=== PATIENT | female | born 1965 | race African-American/Black ===

== ENCOUNTER 2017-04-06 21:28 | Emergency (ER) | payer OTHER, SELFPAY ==
[2017-04-06] MEDS ORDERED: Amoxicillin/Potassium Clav 875 MG TAB ONE (21:56)
== END 2017-04-06 22:00 | disposition home or self-care (01) ==
LOC: BURERS 21:28
DX: J01.90 Acute sinusitis, unspecified (principal); B96.89 Other specified bacterial agents as the cause of diseases classified elsewhere; I10 Essential (primary) hypertension; K58.9 Irritable bowel syndrome, unspecified; F32.9 Major depressive disorder, single episode, unspecified; Z79.891 Long term (current) use of opiate analgesic; Z79.899 Other long term (current) drug therapy
CPT/HCPCS: 99283

== ENCOUNTER 2018-07-23 16:17 | Outpatient (CLI) | payer OTHER ==
--- NOTE | 2018-07-23 16:40 | RAD ---
CHEST TWO VIEWS: 07/23/18 HISTORY: Cough for two weeks. COMPARISON: 08/19/11. Heart size is normal. The lungs are clear. No pneumonia, edema, or pleural effusion. IMPRESSION: No acute intrathoracic disease. No evidence for pneumonia. POS: [facility]
== END 2018-07-23 16:18 | disposition home or self-care (01) ==
LOC: BURRAD 16:17
PROVIDERS: ATTEND Internal Medicine
DX: R05 Cough (principal)
CPT/HCPCS: 71046

== ENCOUNTER 2018-08-11 12:08 | Outpatient (CLI) | payer OTHER ==
--- NOTE | 2018-08-13 07:48 | RAD ---
LUMBAR SPINE THREE VIEWS: 08/11/18 No fracture, disc space narrowing or vertebral anomaly was seen. All vertebrae appear normal for age. There was no excessive arthritic change. The SI joints appear normal. An electronic stimulator devic e is seen in the right lower quadrant and pelvic region. The stimulator generator is located posterio rly. IMPRESSION: No acute bony finding. POS: [facility]
== END 2018-08-11 12:09 | disposition home or self-care (01) ==
LOC: BURRAD 12:08
PROVIDERS: ATTEND Physician Assistant
DX: M54.5 Low back pain (principal)
CPT/HCPCS: 72100

== ENCOUNTER 2020-08-24 15:58 | Emergency (ER) | payer BC ==
[2020-08-24] MEDS ORDERED: Metoclopramide HCl 10 MG/2 ML VIAL ONE (17:54)
[2020-08-24] MEDS ORDERED: diphenhydrAMINE 50 MG/ML VIAL ONE (17:54)
[2020-08-24] MEDS ORDERED: Dexamethasone 10 MG/ML VIAL ONE (17:54)
[2020-08-24] MEDS ORDERED: Ketorolac Tromethamine 30 MG/ML VIAL ONE (17:54)
[2020-08-24 18:12] LABS: Hemoglobin 13.4 g/dL (12.0-16.0); Mean Corpuscular HGB CONC 32.1 g/dL (32.0-36.0); Mean Corpuscular Hemoglobin 29.4 pg (27.0-31.0); Mean Corpuscular Volume 91.6 fL (78.0-98.0); Mean Platelet Volume 7.3 fL (7.4-10.4); Platelet Count 304 thou/uL (130-400); RBC Distribution Width 12.7 % (11.5-14.5); Red Blood Cell (RBC) Count 4.57 mill/uL (4.20-5.40); White Blood Cell (WBC) Count 15.3 thou/uL (4.8-10.8)
[2020-08-24 18:14] LABS: Bilirubin Negative (Negative); Blood, Urine Negative (Negative); Clarity Clear (Clear); Glucose, Urine (Dipstick) Negative (Negative); Ketone, Urine Negative (Negative); Leukocyte Negative (Negative); Nitrite Negative (Negative); Protein, Urine (Dipstick) Negative (Neg-Trace); Specific Gravity, Urine 1.015 (1.005-1.030); Urobilinogen 0.2 mg/dL (Less than 2)
[2020-08-24 18:16] LABS: ALT (SGPT) 15 U/L (8-55); AST (SGOT) 18 U/L (5-34); Albumin 3.7 g/dL (3.5-5.0); Alkaline Phosphatase 109 U/L (40-110); Anion Gap 18 mmol/L (10-20); BUN (Urea Nitrogen) 13 mg/dL (9.8-20.1); Bilirubin, Total 0.3 mg/dL (0.2-1.2); Calc. Creatinine Clearance 0 mL/min (70-130); Calcium 9.4 mg/dL (7.8-10.44); Carbon Dioxide 23 mmol/L (22-29); Chloride 103 mmol/L (98-107); Globulin 4.6 g/dL (2.4-3.5); Glucose 79 mg/dL (70-105); Protein, Total 8.3 g/dL (6.0-8.3); Sodium 139 mmol/L (136-145)
[2020-08-24 18:35] LABS: Band 2 % (5-11); Eosinophils 2 % (0-10); Lymphocytes 23 % (21-51); MDiff Complete? YES; Monocytes 11 % (0-10); Neutrophil 60 % (42-75)
== END 2020-08-24 17:20 | disposition home or self-care (01) ==
LOC: BURERS 15:58
DX: B34.9 Viral infection, unspecified (principal); Z20.822 Contact with and (suspected) exposure to COVID-19; I10 Essential (primary) hypertension; Z79.899 Other long term (current) drug therapy
CPT/HCPCS: 71045; 81003; 83605; 87086; 96374; 96375; J1100; J1200; J1885; J2765

== ENCOUNTER 2021-05-16 19:12 | Emergency (ER) | payer BC ==
[2021-05-17 08:45] LABS: SARS-CoV-2 PCR by NAA DETECTED (NotDetected)
== END 2021-05-16 19:45 | disposition home or self-care (01) ==
LOC: BURERS 19:12
DX: U07.1 COVID-19 (principal); I10 Essential (primary) hypertension; Z79.899 Other long term (current) drug therapy
CPT/HCPCS: 99284; U0003; U0005

== ENCOUNTER 2021-05-17 16:19 | Emergency (ER) | payer BC | END 2021-05-17 17:40 | disposition home or self-care (01) | LOC: BURERS 16:19 | DX: R05.9 Cough, unspecified (principal); R06.02 Shortness of breath; I10 Essential (primary) hypertension | CPT/HCPCS: 71045 ==

== ENCOUNTER 2021-09-10 22:02 | Emergency (ER) | payer BC ==
[2021-09-10] MEDS ORDERED: Morphine 4 MG/ML VIAL ONE ×2 (22:16→22:55)
[2021-09-10 22:58] LABS: #Basophils 0.3 thou/uL (0.0-0.2); #Eosinphils 0.4 thou/uL (0.0-0.7); #Lymphocytes 4.3 thou/uL (1.20-3.40); #Monocytes 0.6 thou/uL (0.11-0.59); #Neutrophils 3.6 thou/uL (1.40-6.50); %Basophils 2.8 % (0.0-1.0); %Eosinophils 4.8 % (0.0-10.0); %Lymphocytes 46.9 % (21.0-51.0); %Neutrophils 38.6 % (42.0-75.0); Hemoglobin 13.8 g/dL (12.0-16.0); Mean Corpuscular HGB CONC 33.1 g/dL (32.0-36.0); Mean Corpuscular Hemoglobin 29.9 pg (27.0-31.0); Mean Corpuscular Volume 90.4 fL (78.0-98.0); Mean Platelet Volume 7.1 fL (7.4-10.4); Platelet Count 305 thou/uL (130-400); RBC Distribution Width 13.1 % (11.5-14.5); Red Blood Cell (RBC) Count 4.61 mill/uL (4.20-5.40); White Blood Cell (WBC) Count 9.2 thou/uL (4.8-10.8)
[2021-09-10 23:00] LABS: PTT 33.9 sec (22.9-36.1); Prothrombin Time 12.8 sec (12.0-14.7)
[2021-09-10 23:02] LABS: ALT (SGPT) 11 U/L (8-55); AST (SGOT) 17 U/L (5-34); Alkaline Phosphatase 113 U/L (40-110); Anion Gap 17 mmol/L (10-20); BUN (Urea Nitrogen) 10 mg/dL (9.8-20.1); Bilirubin, Total 0.4 mg/dL (0.2-1.2); Calc. Creatinine Clearance 0 mL/min (70-130); Calcium 9.6 mg/dL (7.8-10.44); Carbon Dioxide 21 mmol/L (22-29); Chloride 106 mmol/L (98-107); Glucose 97 mg/dL (70-105); Potassium 4.3 mmol/L (3.5-5.1); Sodium 140 mmol/L (136-145)
[2021-09-10] MEDS ORDERED: Ondansetron PF 4 MG/2 ML Vial ONE (23:19)
[2021-09-11] MEDS ORDERED: Morphine 4 MG/ML VIAL ONE (01:12)
[2021-09-11] MEDS ORDERED: Ondansetron PF 4 MG/2 ML Vial ONE (01:12)
[2021-09-11] MEDS ORDERED: Promethazine HCl 25 MG/ML VIAL ONE ×2 (04:33→04:38)
== END 2021-09-11 04:45 | disposition home or self-care (01) ==
LOC: BURERS 22:02
DX: T63.061A Toxic effect of venom of other North and South American snake, accidental (unintentional), initial encounter (principal); I10 Essential (primary) hypertension; Z79.899 Other long term (current) drug therapy
CPT/HCPCS: 36415; 80053; 85025; 85610; 85730; 96374; 96375; 96376; J2270; J2405; J2550

== ENCOUNTER 2021-09-11 18:28 | Emergency (ER) | payer BC ==
[2021-09-11] MEDS ORDERED: HYDROcodone/Acetaminophen 10/325 mg Tablet ONE (18:53)
[2021-09-11] MEDS ORDERED: Ondansetron ODT 4 MG TAB ONE (18:53)
== END 2021-09-11 19:15 | disposition home or self-care (01) ==
LOC: BURERS 18:28
DX: T63.061A Toxic effect of venom of other North and South American snake, accidental (unintentional), initial encounter (principal); I10 Essential (primary) hypertension
CPT/HCPCS: 99283; Q0162

== ENCOUNTER 2024-03-01 19:19 | Emergency (ER) | payer OTHER ==
[2024-03-01] MEDS ORDERED: Nitroglycerin 2% Ointment 1 INCH/1 GM Packet ONE (19:49)
[2024-03-01] MEDS ORDERED: Acetaminophen 500 MG TAB ONE (21:05)
[2024-03-01] MEDS ORDERED: Ondansetron ODT 4 MG TAB ONE (21:08)
== END 2024-03-01 21:55 | disposition home or self-care (01) ==
LOC: BURERS 19:19
DX: I10 Essential (primary) hypertension (principal); Z79.899 Other long term (current) drug therapy
CPT/HCPCS: 99283; Q0162

== ENCOUNTER 2025-02-22 09:20 | Outpatient (CLI) | payer BC | END 2025-02-22 09:21 | disposition home or self-care (01) | LOC: BURRAD 09:20 | PROVIDERS: ATTEND Physician Assistant | DX: M47.26 Other spondylosis with radiculopathy, lumbar region (principal); M47.817 Spondylosis without myelopathy or radiculopathy, lumbosacral region; M48.061 Spinal stenosis, lumbar region without neurogenic claudication; M48.07 Spinal stenosis, lumbosacral region | CPT/HCPCS: 72110 ==